=== PATIENT | female | born 1990 ===

== ENCOUNTER 2018-11-01 18:30 | Emergency (ER) | payer OTHER ==
[2018-11-01] MEDS ORDERED: Sodium Chloride 0.9% 1,000 ML IV STA (19:22)
--- NOTE | 2018-11-01 19:32 | ED PDOC ---
HPI: Abdomen Time Seen by Provider: 11/01/18 18:43 Chief Complaint (Nursing): Abdominal Pain Chief Complaint (Provider): Abdominal Pain History Per: Patient History/Exam Limitations: no limitations Onset/Duration Of Symptoms: Days (x1) Current Symptoms Are (Timing): Still Present Location Of Pain/Discomfort: RUQ Additional Complaint(s): 28 y/o female with a PMHx of Gallstones presents to the ED for evaluation of abdominal pain, onset yesterday. Patient reports pain begins in the RUQ and radiates to the back associated with 5 episodes of watery, non-bloody diarrhea for the last day. Otherwise, patient denies nausea, vomiting, fever, chills, urinary symptoms, vaginal discharge and vaginal bleeding. Of note, patient reports of having had similar episodes of pain for the past two years that has been due to gallstones. Patient additionally denies taking any medications for pain relief. PMD: no provider Past Medical History Reviewed: Historical Data, Nursing Documentation, Vital Signs Vital Signs: Last Vital Signs Temp 98.3 F 11/01/18 18:37 Pulse 86 11/01/18 18:37 Resp 16 11/01/18 18:37 BP 148/84 11/01/18 18:37 Pulse Ox 99 11/01/18 18:37 - Medical History Other PMH: Gall stones - Surgical History Surgical History: (x3) - Family History Family History: States: Diabetes - Social History Current smoker - smoking cessation education provided: No Alcohol: None Drugs: Denies - Home Medications Home Medications: Ambulatory Orders Medication Instructions Recorded Ibuprofen [Motrin Tab] 600 mg PO Q8 PRN #60 tab 11/01/18 - Allergies Allergies/Adverse Reactions: Allergies Allergy/AdvReac Type Severity Reaction Status Date / Time No Known Allergies Allergy Verified 11/01/18 18:37 Review of Systems ROS Statement: Except As Marked, All Systems Reviewed And Found Negative Constitutional: Negative for: Fever, Chills Gastrointestinal: Positive for: Abdominal Pain, Diarrhea. Negative for: Nausea, Vomiting Genitourinary Female: Negative for: Dysuria, Frequency, Hematuria, Vaginal Discharge, Vaginal Bleeding Musculoskeletal: Positive for: Back Pain Physical Exam - Reviewed Nursing Documentation Reviewed: Yes Vital Signs Reviewed: Yes - Physical Exam Appears: Positive for: Non-toxic, In Acute Distress (mild, painful distress) Head Exam: Positive for: ATRAUMATIC, NORMOCEPHALIC Skin: Positive for: Normal Color, Warm, Dry. Negative for: Jaundice Eye Exam: Positive for: Normal appearance, EOMI, PERRL. Negative for: Scleral icterus ENT: Positive for: Pharynx Is (clear). Negative for: Pharyngeal Erythema, Tonsillar Exudate Neck: Positive for: Painless ROM, Supple Cardiovascular/Chest: Positive for: Regular Rate, Rhythm. Negative for: Murmur Respiratory: Positive for: Normal Breath Sounds. Negative for: Respiratory Distress Gastrointestinal/Abdominal: Positive for: Tenderness (RUQ tenderness to palpation. No McBurney's Point Tenderness), Other (Inocente's Sign). Negative for: Mass, Guarding, Rebound Back: Positive for: Normal Inspection. Negative for: Decreased ROM Extremity: Positive for: Normal ROM. Negative for: Deformity Lymphatic: Positive for: Adenopathy Neurological/Psych: Positive for: Awake, Alert. Negative for: Motor/Sensory Deficits - Laboratory Results Result Diagrams: 11/01/18 20:27 11/01/18 20:27 - ECG O2 Sat by Pulse Oximetry: 99 (RA) Pulse Ox Interpretation: Normal Medical Decision Making Medical Decision Making: Time: 1921 Impression: RLQ pain Differentials include but not limited to cholelithiasis, cholecystitis, pancreatitis and gastritis Plan: -- CMP -- Lipase -- ED Urine -- ED Urine Dipstick -- CBC with Differentials -- PTT -- Prothrombin Time -- Sodium Chloride IV 1000 mls/hr -- Pepcid 20 mg IVP -- Toradol 15 mg IVP -- IV Insertion -- US Gallbladder & Hepatic US Labs with no emergently significant abnormalities Name: NEIL BATES Exam Date: Nov 01, 2018 8:14:39 PM EDT Modality Type: SD\US\FL Description: US - AB LIMITED (SINGLE ORGAN, QUADRANT) Gender: F Laterality: Not applicable : 86 Referring Physician: Lexi Wells History Severe RUQ pain. Comparison None. Technique Sonographic evaluation of the right upper quadrant of the abdomen. Findings Liver Measures 14.7 cm in length. Increased echogenicity of the liver parenchyma. No mass. No intrahepatic bile duct dilatation. Gallbladder Gallstones. Gallbladder wall thickness measures 0.2 cm. Common bile duct Measures 3 mm. No stones. No dilatation. Pancreas Limited visualization due to bowel gas. Right kidney Measures 10.2 x 4.1 x 3.9 cm in length. Normal echogenicity. No calculus, mass, or hydronephrosis. Aorta No aneurysmal dilatation. IVC Limited visualization due to bowel gas. Other Findings None. Impression 1. Fatty liver. 2. Gallstones. Electronically signed on Nov 01, 2018 9:33:28 PM EDT by: Frank Miller M.D., M.B.A., Certified By [employer] Trained MRI and CT Specialist DW pt findings and plan of care. Avoid greasy/fatty foods and followup at clinic. Advised to start diary of episodes of pain. Scribe Attestation: Documented by Dede George, acting as a scribe Lurdes Wells MD. Provider Scribe Attestation: All medical record entries made by the Scribe were at my direction and personally dictated by me. I have reviewed the chart and agree that the record accurately reflects my personal performance of the history, physical exam, medical decision making, and the department course for this patient. I have also personally directed, reviewed, and agree with the discharge instructions and disposition. Disposition - Clinical Impression Clinical Impression: Cholelithiasis Counseled Patient/Family Regarding: Studies Performed, Diagnosis - Disposition Referrals: [facility] [Outside] Disposition: Routine/Home Disposition Time: 21:38 Condition: IMPROVED Prescriptions: Ibuprofen [Motrin Tab] 600 mg PO Q8 PRN #60 tab PRN Reason: pain Instructions: Gallstones (DC) Forms: [facility] ED School/Work Excuse Print Language: [place]OT[place]
[2018-11-01 20:32] LABS: BASO % 0.5 % (0.0-2.0); EOS # 0.2 K/uL (0.0-0.7); EOS % 1.4 % (0.0-4.0); HEMOGLOBIN 13.7 g/dL (12.0-16.0); LYMPH # 2.5 K/uL (1.0-4.3); LYMPH % 23.1 % (20.0-40.0); MEAN CELL VOLUME 86.2 fl (81.0-99.0); MEAN CORPUSCULAR HEMOGLOBIN 29.9 pg (27.0-31.0); MEAN CORPUSCULAR HGB CONC 34.7 g/dL (33.0-37.0); MEAN PLATELET VOLUME 7.5 fl (7.2-11.7); MONO # 0.6 K/uL (0.0-0.8); MONO % 5.3 % (0.0-10.0); NEUT # 7.4 K/uL (1.8-7.0); NEUT % 69.7 % (50.0-75.0); RBC 4.58 Mil/uL (3.80-5.20); RED CELL DISTRIBUTION WIDTH 13.4 % (11.5-14.5); WHITE BLOOD COUNT 10.7 K/uL (4.8-10.8)
[2018-11-01 20:39] LABS: INR 0.9; PROTHROMBIN TIME 10.4 Seconds (9.8-13.1)
[2018-11-01 20:42] LABS: PARTIAL THROMBOPLASTIN TIME 30.8 Seconds (25.6-37.1)
[2018-11-01 20:45] LABS: ALB/GLOB RATIO 1.3 (1.0-2.1); ALBUMIN 4.8 g/dL (3.5-5.0); ALT/SGPT 12 U/L (9-52); AST/SGOT 21 U/L (14-36); BLOOD UREA NITROGEN 10 mg/dl (7-17); CALCIUM 9.9 mg/dL (8.4-10.2); GFR NON-AFRICAN AMERICAN > 60; LIPASE 62 U/L (23-300)
[2018-11-01 21:49] VITALS: BP 117/70; PULSE 65; RESP 17; TEMP 98.7; O2SAT 100
--- NOTE | 2018-11-02 12:44 | US ---
Date of service: 11/01/2018 HISTORY: severe RUQ pain h/o gallstones COMPARISON: None. TECHNIQUE: Sonographic evaluation of the right upper quadrant of the abdomen. FINDINGS: LIVER: Measures 14.7 cm in length. Diffusely increased echogenicity of the liver parenchyma. Consistent with fatty infiltration. Smooth contour. No mass. No biliary dilatation. Normal hepatopetal portal venous flow. GALLBLADDER: Cholelithiasis. No mural thickening or pericholecystic fluid. Negative sonographic Knox sign. COMMON BILE DUCT: Measures 3 mm. No stones. No dilatation. PANCREAS: Unremarkable as visualized. No mass. No ductal dilatation. RIGHT KIDNEY: Measures 10.2 cm in length. Normal echogenicity. No calculus, mass, or hydronephrosis. AORTA: No aneurysmal dilatation. IVC: Unremarkable. OTHER FINDINGS: None . IMPRESSION: Fatty infiltration of the liver. Cholelithiasis without sonographic evidence of cholecystitis.
== END 2018-11-01 21:48 | disposition home or self-care (01) ==
LOC: H.ER 18:30
DX: K80.10 Calculus of gallbladder with chronic cholecystitis without obstruction (principal)
CPT/HCPCS: 76705; 80053; 81025; 83690; 85025; 85610; 85730; 96361; 96374; 96375; 99284; J1885; J7030